=== PATIENT | female | born 1965 | race Caucasian/White ===

== ENCOUNTER 2019-10-30 17:54 | Emergency (ER) | payer BC, SELFPAY ==
[2019-10-30 18:02] VITALS: BP 145/85; PULSE 94; RESP 20; TEMP 37; O2SAT 98
--- NOTE | 2019-10-30 18:11 | ED.ANIMALBIT ---
HPI - Animal Bite General Chief Complaint: Animal Bite Stated Complaint: dog bite right hand Time Seen by Provider: 10/30/19 18:12 Source: patient Mode of arrival: ambulatory Limitations: no limitations History of Present Illness HPI narrative: Salina Wesley is a 54 yo female with a PMH of HTN and high cholesterol who comes to express care with a lac to palm of hand from dog bite. Patient's wound is superficial and a flap with a small less than half centimeter secondary laceration. Controlled bleeding. Patient needs tetanus Related Data Home Medications Medication Instructions Recorded Confirmed amlodipine 10/30/19 hydrochlorothiazide 10/30/19 metoprolol succinate PO 10/30/19 Allergies Allergy/AdvReac Type Severity Reaction Status Date / Time No Known Allergies Allergy Unverified 07/11/13 16:39 Review of Systems Review of Systems: Narrative: CONSTITUTIONAL: Denies fever, chills, sweats. EYES: Denies visual changes, redness, discharge. ENT: Denies rhinorrhea, congestion, sore throat, otalgia. CARDIOVASCULAR: Denies chest pain, palpitations, edema. RESPIRATORY: Denies dyspnea, wheezing, cough GASTROINTESTINAL: Denies abdominal pain, nausea, vomiting, diarrhea. GENITOURINARY: Denies dysuria, hematuria, abnormal discharge SKIN: Denies rash or itching. Skin flap to right palm from dog bite NEUROLOGIC: Denies numbness, or focal weakness. PSYCHIATRIC: Denies anxiety or depression. PMFSH Past Medical History Medical History High cholesterol Hypertension Family History Family History (Updated 10/30/19 @ 18:28 by Jyotsna Garza CNP) Other High cholesterol Hypertension Social History Social History (Updated 10/30/19 @ 18:29 by Jyotsna Garza CNP) Smoking status: Former smoker Alcohol intake: current Comments At time of signature, I agree with nursing past medical, surgical, social and family history. There is no relevant family history pertinent to the presenting complaint. Blood pressure elevated due to situation for visit Exam Narrative: Exam Narrative: GENERAL: This is a well-nourished, well-developed patient, in mild distress. HEAD: normocephalic, EYES: Sclera clear/white. Vision is grossly intact. EARS: External ears normal. Hearing grossly intact. NOSE: External nose normal without nasal discharge, nares without redness, no rhinorrhea. THROAT: Mucous membranes moist, NECK: Neck supple, non-tender CARDIOVASCULAR: Regular rate and rhythm without murmurs, gallops, or rubs. RESPIRATORY: Clear to auscultation. Breath sounds equal bilaterally. No wheezes, rales, or rhonchi. GASTROINTESTINAL: Abdomen soft, SKIN: warm, intact with small superficial flap flap measuring about 2 cm on palm of right hand with secondary half centimeter laceration next to it. Controlled bleeding NEURO: awake, alert, and oriented to person, place and time. were no obvious focal neurologic abnormalities. Steady gait EXTREMITIES: Normal range of motion. Able to move fingers of right hand, 2+ pulse, skin warm and pink BACK: Nontender without deformity Course Course Emergency Course: Wound cleaned wound repaired done with Steri-Strips after cleaning Given tetanus shot Wound care instructions given to patient Follow-up with primary care physician Vital Signs Vital signs: Vital Signs Temperature 98.6 F 10/30/19 18:02 Pulse Rate 94 10/30/19 18:02 Respiratory Rate 20 10/30/19 18:02 Blood Pressure 145/85 H 10/30/19 18:02 Pulse Oximetry 98 10/30/19 18:02 Temperature 98.6 F 10/30/19 18:02 Pulse Rate 94 10/30/19 18:02 Respiratory Rate 20 10/30/19 18:02 Blood Pressure 145/85 H 10/30/19 18:02 Pulse Oximetry 98 10/30/19 18:02 Procedures Laceration Laceration 1: Time: 18:31 Site: hand Size (cm): 2 Description: flap Depth: simple, single layer ====== Skin Level ==
[2019-10-30] MEDS: TETANUS,DIPHTHERIA,AC PERTUSSIS ADULT (0.5 ML) BOOSTRIX IM (18:28)
== END 2019-10-30 18:49 | disposition home or self-care (01) ==
PROVIDERS: Emergency Provider Nurse Practitioner
DX: S61.411A Laceration without foreign body of right hand, initial encounter (principal); W54.0XXA Bitten by dog, initial encounter; Z23 Encounter for immunization; Z87.891 Personal history of nicotine dependence; E78.00 Pure hypercholesterolemia, unspecified; I10 Essential (primary) hypertension
CPT/HCPCS: 90471; 90715; 99203; G0463